=== PATIENT | male | born 1930 | race Caucasian/White ===

== ENCOUNTER 2017-06-27 14:15 | Inpatient (IN) | payer SELFPAY ==
[~2017-06-27] VITALS: Ht 162.6 cm; Wt 79.2 kg
[~2017-06-27 14:15] MED LIST: ASPIR 8181 M1 PO; GABAPENTIN100 MG PO; GLIMEPIRIDE4 MG PO; LISINOPRIL-HCT1 EAC3 PO; METOPROLOL TART50 MG PO
[2017-06-27 14:48] LABS: HEMATOCRIT 43.6 % (38.0-50.0); MCH 31.6 PG (29.0-34.0); MCHC 33.9 G/DL (30.0-36.0); MCV 93.2 FL (86-99); MEAN PLAT.VOLUME 11.7 uM^3 (9.0-12.4); PLATELET COUNT 229 K/uL (156-360); RBC DIS.WIDTH-CV 12.4 % (11.8-14.6); RBC DIS.WIDTH-SD 42.5 % (39-53); RED BLOOD COUNT 4.68 M/uL (4.00-5.50); WHITE BLOOD COUNT 12.6 K/uL (4.1-10.2)
[2017-06-27 14:58] LABS: CHLORIDE 105 mEq/L (99-109); SODIUM 136 mEq/L (136-147)
[2017-06-27 15:01] LABS: GLUCOSE 257 mg/dL (70-99)
[2017-06-27 15:02] LABS: ANION GAP 12 MEQ/L (2-14)
[2017-06-27 15:04] LABS: ALKALINE PHOSPHATASE 93 IU/L (3-129); GFR ESTIMATE (CALCULATED) 36 mL/min/ (58.99-99999)
[2017-06-27 15:05] LABS: UREA NITROGEN (BUN) 43 mg/dL (9-23)
[2017-06-27 15:08] LABS: LIPASE 26 U/L (1.0-51.0)
[2017-06-27 15:09] LABS: POTASSIUM 7.4 mEq/L (3.7-5.4); TROP-I INTERPRETATION NEGATIVE; TROPONIN-I 0.08 ng/mL (0.0-0.30)
[2017-06-27 17:30] VITALS: BP 153/87
[2017-06-27 17:49] VITALS: BP 153/87
[2017-06-27 20:10] VITALS: BP 98/53
[2017-06-27 21:37] LABS: TROP-I INTERPRETATION POSITIVE; TROPONIN-I 3.84 ng/mL (0.0-0.30)
[2017-06-27 21:41] LABS: ANION GAP 11 MEQ/L (2-14); CHLORIDE 110 MEQ/L (99-109); GFR ESTIMATE (CALCULATED) 47 mL/min/ (58.99-99999); GLUCOSE 231 mg/dL (70-99); SAMPLE HEMOLYSIS CHECK 0; SAMPLE ICTERIC CHECK 0; SAMPLE LIPEMIA CHECK 0; SODIUM 139 MEQ/L (136-147); UREA NITROGEN (BUN) 39 mg/dL (9-23)
[2017-06-27 21:43] LABS: POTASSIUM 5.1 MEQ/L (3.7-5.4)
[2017-06-27 21:45] LABS: POINT-OF-CARE METER ID UU13113698
[2017-06-27 22:34] VITALS: BP 93/56
[2017-06-27 23:15] VITALS: BP 96/65
[2017-06-28 02:47] LABS: HEMATOCRIT 35.8 % (38.0-50.0); MCHC 34.6 G/DL (30.0-36.0); MCV 92.3 FL (86-99); MEAN PLAT.VOLUME 11.6 uM^3 (9.0-12.4); PLATELET COUNT 177 K/uL (156-360); RBC DIS.WIDTH-CV 12.5 % (11.8-14.6); RBC DIS.WIDTH-SD 42.3 % (39-53); RED BLOOD COUNT 3.88 M/uL (4.00-5.50); WHITE BLOOD COUNT 8.7 K/uL (4.1-10.2)
[2017-06-28 03:01] LABS: CHLORIDE 111 mEq/L (99-109); POTASSIUM 4.6 mEq/L (3.7-5.4); SODIUM 139 mEq/L (136-147)
[2017-06-28 03:03] LABS: GLUCOSE 184 mg/dL (70-99)
[2017-06-28 03:04] LABS: ANION GAP 7 MEQ/L (2-14)
[2017-06-28 03:06] LABS: GFR ESTIMATE (CALCULATED) 43 mL/min/ (58.99-99999)
[2017-06-28 03:07] LABS: UREA NITROGEN (BUN) 37 mg/dL (9-23)
[2017-06-28 03:11] LABS: TROP-I INTERPRETATION POSITIVE
[2017-06-28 03:13] LABS: TROPONIN-I 6.24 ng/mL (0.0-0.30)
[2017-06-28 03:18] VITALS: BP 135/60
[2017-06-28 05:10] LABS: ADD MIUA? YES; BILIRUBIN NEGATIVE; BLOOD LARGE; COLOR YELLOW ((YELLOW)); GLUCOSE (STRIP) 50; KETONES NEGATIVE; LEUKOCYTES NEGATIVE; NITRITE NEGATIVE; PROTEIN (STRIP) 100
[2017-06-28 05:21] LABS: BACTERIA NONE SEEN /HPF; EPITHELIAL CELLS RARE /HPF; MUCUS TRACE /LPF; RED BLOOD CELLS TNTC /HPF (0-5); WHITE BLOOD CELLS 0-5 /HPF (0-5)
[2017-06-28 07:42] LABS: POINT-OF-CARE METER ID UU13113781
[2017-06-28 09:00] VITALS: BP 116/66
[2017-06-28 09:01] LABS: HEMATOCRIT 38.1 % (38.0-50.0); MCH 32.1 PG (29.0-34.0); MCHC 34.4 G/DL (30.0-36.0); MCV 93.4 FL (86-99); MEAN PLAT.VOLUME 11.5 uM^3 (9.0-12.4); PLATELET COUNT 185 K/uL (156-360); RBC DIS.WIDTH-CV 12.8 % (11.8-14.6); RBC DIS.WIDTH-SD 43.7 % (39-53); RED BLOOD COUNT 4.08 M/uL (4.00-5.50); WHITE BLOOD COUNT 8.7 K/uL (4.1-10.2)
[2017-06-28 09:17] LABS: PROTHROMBIN TIME 11.9 SEC (10.2-12.9)
[2017-06-28 09:20] LABS: PTT 29.2 SEC (25-37)
[2017-06-28 11:43] LABS: POINT-OF-CARE METER ID UU14314088
[2017-06-28 12:21] VITALS: BP 116/57
[2017-06-28 15:47] LABS: INTER. NORMALIZED RATIO 1.1; PROTHROMBIN TIME 12.2 SEC (10.2-12.9)
[2017-06-28 16:14] LABS: PTT 111.6 SEC (25-37)
[2017-06-28 16:47] LABS: POINT-OF-CARE METER ID UU14174216
[2017-06-28 17:24] VITALS: BP 143/71
[2017-06-28 18:01] LABS: POINT-OF-CARE METER ID UU14314088
[2017-06-28 19:25] VITALS: BP 144/68
[2017-06-28 21:19] LABS: POINT-OF-CARE METER ID UU14174216
[2017-06-28 23:55] VITALS: BP 132/60
[2017-06-29 04:04] VITALS: BP 122/80
[2017-06-29 07:41] LABS: EOSINOPHIL COUNT 0.1 K/uL (0-0.3); IMMATURE GRANULOCYTE (%) 0.3 % (0.0-0.7); INSTRUMENT ABS NEUTROPHIL CT 7.4 K/uL; LYMPHOCYTE COUNT 1.2 K/uL (1.0-2.8); MCH 31.3 PG (29.0-34.0); MCHC 34.2 G/DL (30.0-36.0); MCV 91.6 FL (86-99); MEAN PLAT.VOLUME 11.9 uM^3 (9.0-12.4); MONOCYTE (%) 11.6 % (3-12); MONOCYTE COUNT 1.1 K/uL (0-0.8); NEUTROPHIL (%) 74.9 % (45-76); NEUTROPHIL COUNT 7.4 K/uL (1.8-6.4); PLATELET COUNT 184 K/uL (156-360); RBC DIS.WIDTH-CV 12.4 % (11.8-14.6); RBC DIS.WIDTH-SD 42.3 % (39-53); RED BLOOD COUNT 3.93 M/uL (4.00-5.50); WHITE BLOOD COUNT 9.9 K/uL (4.1-10.2)
[2017-06-29 08:00] VITALS: BP 146/73
[2017-06-29 08:12] LABS: POINT-OF-CARE METER ID UU13113698
[2017-06-29 08:18] LABS: ANION GAP 10 MEQ/L (2-14); CHLORIDE 105 MEQ/L (99-109); GFR ESTIMATE (CALCULATED) 43 mL/min/ (58.99-99999); GLUCOSE 222 mg/dL (70-99); POTASSIUM 4.1 MEQ/L (3.7-5.4); SAMPLE HEMOLYSIS CHECK 0; SAMPLE ICTERIC CHECK 0; SAMPLE LIPEMIA CHECK 0; SODIUM 137 MEQ/L (136-147); UREA NITROGEN (BUN) 33 mg/dL (9-23)
[2017-06-29 11:51] LABS: POINT-OF-CARE METER ID UU13113781
[2017-06-29 12:00] VITALS: BP 138/62
[2017-06-29] MEDS ORDERED: NITROSTAT0.4 MG SL (12:54)
[2017-06-29] MEDS ORDERED: ATORVASTATIN CA40 MG PO (12:54)
[2017-06-29] MEDS ORDERED: METOPROLOL TART50 MG PO (12:54)
[2017-06-29] MEDS ORDERED: CLOPIDOGREL75 MG PO (12:54)
[2017-06-29] MEDS ORDERED: FUROSEMIDE80 MG PO (12:55)
== END 2017-06-29 14:29 | disposition home or self-care (01) | DRG 281 ==
LOC: EME 14:15 → EDOF 15:43 → 4EAST 15:43 → ENRESERV 15:48 → 4EAST 16:54 → ENPENDDIS 06-29 → 4EAST 06-29 10:32
PROVIDERS: Emergency Medicine; Internal Medicine; Internal Medicine Cardiovascular Disease
DX: I47.1 Supraventricular tachycardia (principal); E87.5 Hyperkalemia; I21.4 Non-ST elevation (NSTEMI) myocardial infarction; N17.9 Acute kidney failure, unspecified; T46.4X5A Adverse effect of angiotensin-converting-enzyme inhibitors, initial encounter; E86.0 Dehydration; R31.29 Other microscopic hematuria; I50.1 Left ventricular failure, unspecified; E11.22 Type 2 diabetes mellitus with diabetic chronic kidney disease; E11.40 Type 2 diabetes mellitus with diabetic neuropathy, unspecified; I12.9 Hypertensive chronic kidney disease with stage 1 through stage 4 chronic kidney disease, or unspecified chronic kidney disease; N18.3 Chronic kidney disease, stage 3 (moderate); E78.5 Hyperlipidemia, unspecified; M19.90 Unspecified osteoarthritis, unspecified site; Z66 Do not resuscitate; E66.9 Obesity, unspecified; Z68.29 Body mass index [BMI] 29.0-29.9, adult; Z95.0 Presence of cardiac pacemaker; Z79.82 Long term (current) use of aspirin; Z79.84 Long term (current) use of oral hypoglycemic drugs; Z91.14 Patient's other noncompliance with medication regimen
CPT/HCPCS: 71010; 80048; 80048 91; 80053; 81003; 82306; 82948; 83690; 83880; 84484; 85025; 85027; 85610; 85730; 93005; 94640; 94640 76; 94799; 99202; 99281; 99285; J0610; J1644; J1815; J1940; J2270; J2405; J7030; J7050